=== PATIENT | male | born 1955 ===

== ENCOUNTER → 2017-10-11 18:50 | Outpatient (REF) | payer OTHER, SELFPAY ==
[2017-10-11 21:09] LABS: Hepatitis B Surface Antigen NEGATIVE s/c (NEGATIVE)
[2017-10-11 21:22] LABS: Hep C Virus Ab w/Reflex Quant NEGATIVE s/c (NEGATIVE)
== END ==
LOC: LAB 18:50
PROVIDERS: Visit Provider Family Medicine
DX: R74.8 Abnormal levels of other serum enzymes (principal)
CPT/HCPCS: 82728; 86803; 87340